=== PATIENT | female | born 1985 | race Caucasian/White ===

== ENCOUNTER 2018-08-20 18:45 | Emergency (ER) | payer SELFPAY ==
[~2018-08-20] VITALS: Ht 162.6 cm; Wt 81.8 kg
[2018-08-20] MEDS ORDERED: KETOROLAC TROMETHAMINE 30 MG/ML VIAL IM ONE (21:00)
[2018-08-20] MEDS ORDERED: LIDOCAINE 5% TRANSDERMAL PATCH TD ONE (21:00)
[2018-08-20 22:00] VITALS: BP 124/73
== END 2018-08-21 00:28 | disposition home or self-care (01) ==
LOC: EMS 18:46
DX: S39.012A Strain of muscle, fascia and tendon of lower back, initial encounter (principal); W01.0XXA Fall on same level from slipping, tripping and stumbling without subsequent striking against object, initial encounter; Y93.89 Activity, other specified; Y92.89 Other specified places as the place of occurrence of the external cause; Y99.8 Other external cause status